=== PATIENT | male | born 1930 | race Caucasian/White ===

== ENCOUNTER 2016-10-08 10:30 | Outpatient (RCR) | payer MEDICARE, BC ==
[~2016-10-08 10:30] MED LIST: ACTOS 15MG TAB15 MG PO; APRESOLINE 25MG25 MG PO; ASPIRIN 81M81 MG/TA2 PO; ATROVENT INHALE14 GM IH; BACTRIM 400 MG-1 TAB PO; BETAPACE160 MG PO; CARDIZEM CD 18180 MG PO; CORDARONE200 MG/TAB PO; COUMADIN 22.5 MG/TAB; COUMADIN 5MG5 MG/TAB; COUMADIN 5MG5 MG/TAB PO; COZAAR 50MG50 MG/TAB PO; DARVOCET N PO; DOXYCYCLINE 10100 MG PO; ECOTRIN325 MG PO; FISH OIL1000 MG PO; FLONASE NASAL S16 GM NS; FORTAMET500 MG PO; GLUCOPHAGE XR500 M1 PO; GLUCOPHAGE1000 MG PO; GLUCOPHAGE500 MG/TAB PO; GLYBURIDE MICRON3 MG PO; HUMALOG PEN100 U/ML SC; HYZAAR 25 MG-101 TAB PO; INSULIN; LANTUS100 U/ML SC; LOPRESSOR 225 MG/TAB PO; MASON NATURAL1000 MG PO; MUCINEX 60600 MG/TA1 PO; MUCINEX1200 MG PO; NIACIN PO; NITROSTAT0.4 MG/TAB SL; NORVASC 10MG10 MG PO; NORVASC2.5 MG PO; NOVOLOG 100U100 U/M1 SQ; PACERONE200 MG PO; PHENERGAN W/CO120 M1 PO; PRAVACHOL10 MG PO; PREDNISONE20 MG PO; PROAIR HFA0.09 MG/AC IH; PROMETHAZINE V473 M2 PO; RT SPIRIVA18 MCG IH; RT SPIRIVA18 MCG INH; SINGULAIR 110 MG/TAB PO; TOUJEO300 U/ML SQ; TRICOR145 MG PO; TYLENOL 500MG500 MG PO; VENTOLIN0.09 MG IH; XANAX .25M0.25 MG/TA PO; ZITHROMAX 250M250 MG PO; ZITHROMAX500 M2 PO
[2016-10-15] MEDS ORDERED: MUCINEX 60600 MG/TA1 PO (13:34)
[2016-10-15] MEDS ORDERED: LASIX 20MG TABL20 MG PO (13:34)
[2016-10-15] MEDS ORDERED: COMBIRESP IH (13:39)
[2016-10-15] MEDS ORDERED: ALBUTEROL0.83 MG/ML IH (13:40)
[2016-10-15] MEDS ORDERED: COUMADIN 22.5 MG/TAB PO (15:14)
[2016-10-15] MEDS ORDERED: COUMADIN 5MG5 MG/TAB PO (15:14)
[2016-10-19] MEDS ORDERED: SENOKOT S 50 MG1 TAB PO (08:16)
[2016-10-19] MEDS ORDERED: MIRALAX PA17 GM/Dose PO (08:17)
[2016-10-19] MEDS ORDERED: NORCO 325 MG-51 TAB PO (08:17)
[2016-10-19] MEDS ORDERED: STOOL SOFTENER100 M2 PO (08:17)
== END 2016-11-02 12:22 | disposition home or self-care (01) ==
LOC: WSPT 10:30
DX: M54.5 Low back pain (principal); G89.29 Other chronic pain
CPT/HCPCS: G8979-GP; G8980-GP

== ENCOUNTER 2016-10-15 10:32 | Inpatient (IN) | payer MEDICARE, BC ==
[~2016-10-15] VITALS: Ht 170.2 cm; Wt 81.6 kg
[2016-10-15 11:17] LABS: BASO % 0.4 % (0.0-2.0); EOS # 0.2 (0.0-0.7); EOS % 2.6 % (0-4.0); GRAN # 5.4 (1.4-6.5); GRAN % 74.1 % (42.2-75.2); HEMATOCRIT 35.3 % (42.0-52.0); HEMOGLOBIN 12.1 g/dl (13.5-18.0); LYMPH # 1.1 (1.2-3.4); LYMPH % 15.2 % (20.0-51.0); MEAN CELL VOLUME 92 fl (80.0-100.0); MEAN CORPUSCULAR HEMOGLOBIN 31 pg (27.0-31.0); MEAN CORPUSCULAR HGB CONC 34 g/dl (33.0-37.0); MEAN PLATELET VOLUME 10.5 fl (7.4-10.4); MONO # 0.5 (0.1-0.6); MONO % 7.3 % (1.7-9.3); PLATELET COUNT 234 K/mm3 (130-400); RED BLOOD COUNT 3.86 M/mm3 (4.20-5.60); REDCELL DISTRIBUTION WIDTH-CV 12.2 % (11.5-14.5); WHITE BLOOD COUNT 7.3 K/mm3 (4.8-10.8)
[2016-10-15 11:26] LABS: ADJUSTED CALCIUM 9.4 mg/dL (8.4-10.2); ALBUMIN 3.8 gm/dL (3.5-5.0); BILIRUBIN,TOTAL 0.6 mg/dL (0.0-1.0); CALCIUM 9.2 mg/dL (8.4-10.2); CREATININE, serum 1.34 mg/dL (0.66-1.25); POTASSIUM 4.1 mmol/L (3.4-5.0); TOTAL PROTEIN 6.7 gm/dL (6.4-8.2)
[2016-10-15 13:12] LABS: PH 5 (5-8); SQUAMOUS EPITHELIAL None Seen /hpf; URINE APPEARANCE Clear; URINE BACTERIA None Seen /hpf; URINE BILIRUBIN Negative (NEGATIVE); URINE BLOOD Negative (NEGATIVE); URINE COLOR Yellow; URINE GLUCOSE Negative (NEGATIVE); URINE KETONE Negative (NEGATIVE); URINE RBC 0-2 /hpf; URINE UROBILINOGEN Negative (NEGATIVE); URINE WBC 0-2 /hpf
[2016-10-15] MEDS ORDERED: MUCINEX 60600 MG/TA1 PO (13:34)
[2016-10-15] MEDS ORDERED: LASIX 20MG TABL20 MG PO (13:34)
[2016-10-15] MEDS ORDERED: COMBIRESP IH (13:39)
[2016-10-15] MEDS ORDERED: ALBUTEROL0.83 MG/ML IH (13:40)
[2016-10-15] MEDS ORDERED: COUMADIN 22.5 MG/TAB PO (15:14)
[2016-10-15] MEDS ORDERED: COUMADIN 5MG5 MG/TAB PO (15:14)
[2016-10-15 17:25] VITALS: BP 138/60; PULSE 61; TEMP 98.3
[2016-10-15 18:12] LABS: INR 2.4 (0.8-3.0); PROTHROMBIN TIME 27.7 SECONDS (9.7-12.8)
[2016-10-15 20:41] VITALS: BP 143/56; PULSE 92; TEMP 98.4
[2016-10-16] VITALS (7 sets, daily range): BP systolic 130–158; BP diastolic 50–64; PULSE 67–78; TEMP 97.9–99.1
[2016-10-16 06:47] LABS: INR 2.2 (0.8-3.0); PROTHROMBIN TIME 25.1 SECONDS (9.7-12.8)
[2016-10-17 03:48] VITALS: BP 140/59; PULSE 68; TEMP 99.3
[2016-10-17 07:03] LABS: INR 1.5 (0.8-3.0); PROTHROMBIN TIME 16.7 SECONDS (9.7-12.8)
[2016-10-17 07:51] VITALS: BP 155/66; PULSE 77; TEMP 98.3
[2016-10-17 11:49] VITALS: BP 146/50; PULSE 78; TEMP 98.3
[2016-10-17 16:34] VITALS: BP 145/59; PULSE 77; TEMP 98.7
[2016-10-17 20:00] VITALS: BP 162/60; PULSE 17; TEMP 98.4
[2016-10-18] VITALS (7 sets, daily range): BP systolic 131–161; BP diastolic 50–64; PULSE 83–92; TEMP 97.7–98.8
[2016-10-18 07:23] LABS: INR 1.3 (0.8-3.0); PROTHROMBIN TIME 14.7 SECONDS (9.7-12.8)
[2016-10-19 03:28] VITALS: BP 148/61; PULSE 71; TEMP 98.5
[2016-10-19 07:36] VITALS: BP 146/61; PULSE 80; TEMP 98.3
[2016-10-19] MEDS ORDERED: SENOKOT S 50 MG1 TAB PO (08:16)
[2016-10-19] MEDS ORDERED: MIRALAX PA17 GM/Dose PO (08:17)
[2016-10-19] MEDS ORDERED: NORCO 325 MG-51 TAB PO (08:17)
[2016-10-19] MEDS ORDERED: STOOL SOFTENER100 M2 PO (08:17)
[2016-10-19 11:11] VITALS: BP 146/61; PULSE 80; TEMP 98.3
[2016-10-19 11:18] VITALS: BP 166/63; PULSE 83; TEMP 94; TEMP 97.5
== END 2016-10-19 12:37 | DRG 552 ==
LOC: COL.ER 10:32 → MEDICAL 14:49
PROVIDERS: Emergency Medicine; Internal Medicine
PROC: 3E0R33Z Introduction of Anti-inflammatory into Spinal Canal, Percutaneous Approach (ICD-10-PCS; principal; 2016-10-18)
PROC: 3E0R3CZ (ICD-10-PCS; 2016-10-18)
DX: M51.26 Other intervertebral disc displacement, lumbar region (principal); I48.0 Paroxysmal atrial fibrillation; J44.9 Chronic obstructive pulmonary disease, unspecified; E11.649 Type 2 diabetes mellitus with hypoglycemia without coma; E11.22 Type 2 diabetes mellitus with diabetic chronic kidney disease; N18.9 Chronic kidney disease, unspecified; I12.9 Hypertensive chronic kidney disease with stage 1 through stage 4 chronic kidney disease, or unspecified chronic kidney disease; K59.00 Constipation, unspecified; Z79.01 Long term (current) use of anticoagulants; Z86.718 Personal history of other venous thrombosis and embolism; Z79.4 Long term (current) use of insulin
CPT/HCPCS: 99222-AI; 99232-AI; 99239; J1815; J2765; J3010; J3301; J7030; J7040; Q9965

== ENCOUNTER 2016-11-02 13:27 | Inpatient (IN) | payer MEDICARE, BC ==
[2016-11-02] VITALS (274 sets, daily range): BP systolic 142–155; BP diastolic 70; PULSE 73–74; TEMP 98.6–98.9; O2SAT 88–100
[~2016-11-02] VITALS: Ht 170.2 cm; Wt 94.9 kg
[~2016-11-02 13:27] MED LIST changes: +ALBUTEROL0.83 MG/ML IH; +COMBIRESP IH; +COUMADIN 22.5 MG/TAB PO; +LASIX 20MG TABL20 MG PO; +MIRALAX PA17 GM/Dose PO; +NORCO 325 MG-51 TAB PO; +SENOKOT S 50 MG1 TAB PO; +STOOL SOFTENER100 M2 PO
[2016-11-02 16:15] LABS: BASO % 0.4 % (0.0-2.0); EOS # 0.1 (0.0-0.7); EOS % 0.6 % (0-4.0); GRAN # 6.5 (1.4-6.5); GRAN % 81.2 % (42.2-75.2); LYMPH # 0.7 (1.2-3.4); LYMPH % 8.7 % (20.0-51.0); MEAN CELL VOLUME 91 fl (80.0-100.0); MEAN CORPUSCULAR HGB CONC 33 g/dl (33.0-37.0); MEAN PLATELET VOLUME 11.1 fl (7.4-10.4); MONO # 0.7 (0.1-0.6); MONO % 8.7 % (1.7-9.3); PLATELET COUNT 275 K/mm3 (130-400); RED BLOOD COUNT 3.74 M/mm3 (4.20-5.60); REDCELL DISTRIBUTION WIDTH-CV 12.2 % (11.5-14.5)
[2016-11-02 16:16] LABS: HEMATOCRIT 34.1 % (42.0-52.0); HEMOGLOBIN 11.4 g/dl (13.5-18.0); MEAN CORPUSCULAR HEMOGLOBIN 30 pg (27.0-31.0)
[2016-11-02 16:20] LABS: ADJUSTED CALCIUM 9.5 mg/dL (8.4-10.2); ALBUMIN 3.4 gm/dL (3.5-5.0); BILIRUBIN,TOTAL 0.8 mg/dL (0.0-1.0); CREATININE, serum 1.41 mg/dL (0.66-1.25); POTASSIUM 4.6 mmol/L (3.4-5.0); TOTAL PROTEIN 6.6 gm/dL (6.4-8.2)
[2016-11-02 18:53] LABS: INR 1.6 (0.8-3.0); PROTHROMBIN TIME 18.4 SECONDS (9.7-12.8)
[2016-11-02 23:40] LABS: PH 5 (5-8); SQUAMOUS EPITHELIAL None Seen /hpf; URINE APPEARANCE Hazy; URINE BACTERIA None Seen /hpf; URINE BILIRUBIN Negative (NEGATIVE); URINE BLOOD Negative (NEGATIVE); URINE COLOR Yellow; URINE GLUCOSE Negative (NEGATIVE); URINE KETONE Negative (NEGATIVE); URINE RBC 0-2 /hpf; URINE UROBILINOGEN Negative (NEGATIVE)
[2016-11-03] VITALS (829 sets, daily range): BP systolic 133–163; BP diastolic 61–79; PULSE 73–93; TEMP 98–100.2; O2SAT 79–98
[2016-11-03 05:40] LABS: BASO % 0.3 % (0.0-2.0); EOS # 0.2 (0.0-0.7); EOS % 2.9 % (0-4.0); GRAN # 5.3 (1.4-6.5); GRAN % 72.2 % (42.2-75.2); LYMPH # 1.1 (1.2-3.4); LYMPH % 14.5 % (20.0-51.0); MEAN CELL VOLUME 91 fl (80.0-100.0); MEAN CORPUSCULAR HGB CONC 33 g/dl (33.0-37.0); MEAN PLATELET VOLUME 9.7 fl (7.4-10.4); MONO # 0.7 (0.1-0.6); MONO % 9.6 % (1.7-9.3); PLATELET COUNT 228 K/mm3 (130-400); RED BLOOD COUNT 3.39 M/mm3 (4.20-5.60); WHITE BLOOD COUNT 7.4 K/mm3 (4.8-10.8)
[2016-11-03 05:42] LABS: HEMATOCRIT 30.8 % (42.0-52.0); HEMOGLOBIN 10.3 g/dl (13.5-18.0); MEAN CORPUSCULAR HEMOGLOBIN 30 pg (27.0-31.0)
[2016-11-03 05:51] LABS: INR 1.8 (0.8-3.0); PROTHROMBIN TIME 20.7 SECONDS (9.7-12.8)
[2016-11-03 06:00] LABS: ADJUSTED CALCIUM 9.2 mg/dL (8.4-10.2); ALBUMIN 2.8 gm/dL (3.5-5.0); BILIRUBIN,TOTAL 0.7 mg/dL (0.0-1.0); CALCIUM 8.2 mg/dL (8.4-10.2); CREATININE, serum 1.17 mg/dL (0.66-1.25); POTASSIUM 4.1 mmol/L (3.4-5.0); TOTAL PROTEIN 5.7 gm/dL (6.4-8.2)
[2016-11-04] VITALS (162 sets, daily range): BP systolic 126–152; BP diastolic 50–68; PULSE 70–91; TEMP 97.7–101.4; O2SAT 86–98
[2016-11-04 05:13] LABS: ARTERIAL BLD GAS TCO2 CT 22.3; ARTERIAL BLOOD GAS BASE EXCESS -1.3 (-2-2); ARTERIAL BLOOD GAS HCO3 21.4 meq/L (22-26); ARTERIAL BLOOD GAS PHT 7.48 C (7.35-7.45); ARTERIAL BLOOD GAS PO2 52.4 mmHg (80-100); ARTERIAL BLOOD GAS PO2T 52.4 (80-100); ARTERIAL BLOOD GAS pH 7.48 (7.35-7.45); OXYHEMOGLOBIN 88.6 %
[2016-11-04 05:17] LABS: ALLEN TEST NO; ATS? YES
[2016-11-04 08:11] LABS: INR 2.5 (0.8-3.0)
[2016-11-04 08:15] LABS: BASO % 0.2 % (0.0-2.0); EOS # 0.1 (0.0-0.7); EOS % 0.6 % (0-4.0); GRAN # 8.1 (1.4-6.5); LYMPH # 0.9 (1.2-3.4); LYMPH % 8.7 % (20.0-51.0); MEAN CELL VOLUME 90 fl (80.0-100.0); MEAN CORPUSCULAR HGB CONC 34 g/dl (33.0-37.0); MEAN PLATELET VOLUME 10.8 fl (7.4-10.4); MONO # 0.8 (0.1-0.6); MONO % 8.2 % (1.7-9.3); PLATELET COUNT 259 K/mm3 (130-400); RED BLOOD COUNT 3.59 M/mm3 (4.20-5.60); REDCELL DISTRIBUTION WIDTH-CV 12.1 % (11.5-14.5); WHITE BLOOD COUNT 9.9 K/mm3 (4.8-10.8)
[2016-11-04 08:18] LABS: HEMATOCRIT 32.3 % (42.0-52.0); MEAN CORPUSCULAR HEMOGLOBIN 31 pg (27.0-31.0)
[2016-11-04 08:22] LABS: ADJUSTED CALCIUM 9.4 mg/dL (8.4-10.2); BILIRUBIN,TOTAL 1.2 mg/dL (0.0-1.0); CALCIUM 8.6 mg/dL (8.4-10.2); CREATININE, serum 1.2 mg/dL (0.66-1.25); POTASSIUM 3.8 mmol/L (3.4-5.0); TOTAL PROTEIN 6.2 gm/dL (6.4-8.2)
[2016-11-04 09:19] LABS: ARTERIAL BLD GAS O2 SATURATION 94.6 % (92-100); ARTERIAL BLD GAS TCO2 CT 24.6; ARTERIAL BLOOD GAS HCO3 23.6 meq/L (22-26); ARTERIAL BLOOD GAS PO2 68.5 mmHg (80-100); ARTERIAL BLOOD GAS PO2T 68.5 (80-100); ATS? YES; OXYHEMOGLOBIN 94.1 %
[2016-11-04 09:20] LABS: ALLEN TEST YES; ALLENS TEST RESULT PASS
[2016-11-04 21:47] LABS: ARTERIAL BLD GAS O2 SATURATION 89.8 % (92-100); ARTERIAL BLD GAS TCO2 CT 23.9; ARTERIAL BLOOD GAS BASE EXCESS 0.3 (-2-2); ARTERIAL BLOOD GAS HCO3 22.9 meq/L (22-26); ARTERIAL BLOOD GAS PO2 53.3 mmHg (80-100); ARTERIAL BLOOD GAS pH 7.49 (7.35-7.45)
[2016-11-04 21:48] LABS: ALLEN TEST YES; ALLENS TEST RESULT PASS; ATS? YES
[2016-11-05] VITALS (630 sets, daily range): BP systolic 125–148; BP diastolic 60–73; PULSE 67–84; TEMP 89.8–99.3; O2SAT 81–100
[2016-11-05 06:44] LABS: ADJUSTED CALCIUM 9.4 mg/dL (8.4-10.2); ALBUMIN 2.7 gm/dL (3.5-5.0); BASO % 0.2 % (0.0-2.0); BILIRUBIN,TOTAL 1.2 mg/dL (0.0-1.0); CALCIUM 8.4 mg/dL (8.4-10.2); CREATININE, serum 1.22 mg/dL (0.66-1.25); EOS # 0.2 (0.0-0.7); EOS % 1.7 % (0-4.0); GRAN # 8.7 (1.4-6.5); GRAN % 84.9 % (42.2-75.2); LYMPH # 0.7 (1.2-3.4); LYMPH % 7.1 % (20.0-51.0); MEAN CELL VOLUME 90 fl (80.0-100.0); MEAN CORPUSCULAR HGB CONC 35 g/dl (33.0-37.0); MEAN PLATELET VOLUME 11.2 fl (7.4-10.4); MONO # 0.6 (0.1-0.6); MONO % 5.5 % (1.7-9.3); PLATELET COUNT 226 K/mm3 (130-400); POTASSIUM 3.4 mmol/L (3.4-5.0); RED BLOOD COUNT 3.22 M/mm3 (4.20-5.60); REDCELL DISTRIBUTION WIDTH-CV 11.9 % (11.5-14.5); TOTAL PROTEIN 5.6 gm/dL (6.4-8.2); WHITE BLOOD COUNT 10.2 K/mm3 (4.8-10.8)
[2016-11-05 06:52] LABS: MEAN CORPUSCULAR HEMOGLOBIN 31 pg (27.0-31.0)
[2016-11-05 06:55] LABS: TROPONIN-I 0.03 ng/mL (0.000-0.034)
[2016-11-05 07:06] LABS: INR 2.6 (0.8-3.0); PROTHROMBIN TIME 29.7 SECONDS (9.7-12.8)
[2016-11-05 10:32] LABS: ERYTHROCYTE SEDIMENTATION RATE 102 mm/hr (0-30)
[2016-11-05 11:16] LABS: MAGNESIUM 1.7 mg/dL (1.6-2.3)
[2016-11-05 14:24] LABS: INFLUENZA B NEGATIVE
[2016-11-06] VITALS (531 sets, daily range): BP systolic 113–132; BP diastolic 56–96; PULSE 67–86; TEMP 97.6–99.9; O2SAT 78–100
[2016-11-06 06:05] LABS: BASO % 0.2 % (0.0-2.0); EOS # 0.3 (0.0-0.7); EOS % 2.6 % (0-4.0); GRAN # 8.6 (1.4-6.5); GRAN % 81.4 % (42.2-75.2); LYMPH # 0.9 (1.2-3.4); LYMPH % 8.1 % (20.0-51.0); MEAN CELL VOLUME 90 fl (80.0-100.0); MEAN CORPUSCULAR HGB CONC 34 g/dl (33.0-37.0); MEAN PLATELET VOLUME 11.2 fl (7.4-10.4); MONO # 0.8 (0.1-0.6); MONO % 7.1 % (1.7-9.3); PLATELET COUNT 239 K/mm3 (130-400); RED BLOOD COUNT 3.25 M/mm3 (4.20-5.60); REDCELL DISTRIBUTION WIDTH-CV 12.1 % (11.5-14.5); WHITE BLOOD COUNT 10.6 K/mm3 (4.8-10.8)
[2016-11-06 06:11] LABS: HEMATOCRIT 29.2 % (42.0-52.0); HEMOGLOBIN 9.9 g/dl (13.5-18.0); MEAN CORPUSCULAR HEMOGLOBIN 30 pg (27.0-31.0)
[2016-11-06 06:22] LABS: CALCIUM 8.3 mg/dL (8.4-10.2); CREATININE, serum 1.13 mg/dL (0.66-1.25); MAGNESIUM 1.9 mg/dL (1.6-2.3); PHOSPHOROUS 2.8 mg/dL (2.5-4.5)
[2016-11-07] VITALS (835 sets, daily range): BP systolic 123–153; BP diastolic 49–71; PULSE 75–89; TEMP 97.4–98.4; O2SAT 75–100
[2016-11-07 05:53] LABS: MEAN CELL VOLUME 91 fl (80.0-100.0); MEAN CORPUSCULAR HGB CONC 34 g/dl (33.0-37.0); MEAN PLATELET VOLUME 11.3 fl (7.4-10.4); PLATELET COUNT 239 K/mm3 (130-400); RED BLOOD COUNT 3.05 M/mm3 (4.20-5.60); REDCELL DISTRIBUTION WIDTH-CV 12.1 % (11.5-14.5)
[2016-11-07 05:59] LABS: HEMATOCRIT 27.6 % (42.0-52.0); HEMOGLOBIN 9.4 g/dl (13.5-18.0); MEAN CORPUSCULAR HEMOGLOBIN 31 pg (27.0-31.0)
[2016-11-07 06:00] LABS: ADD PATHOLOGY DIFF REVIEW NO
[2016-11-07 06:10] LABS: CALCIUM 8.5 mg/dL (8.4-10.2); CREATININE, serum 1.27 mg/dL (0.66-1.25); POTASSIUM 4.1 mmol/L (3.4-5.0)
[2016-11-07 06:15] LABS: BAND 7 % (0-10); NEUTROPHILS 92 % (42.0-75.2); PLATELET ESTIMATE NORMAL (NORMAL); TOTAL CELLS COUNTED 100
[2016-11-07 12:11] LABS: RETIC % 0.9 % (0.5-3.52)
[2016-11-07 12:25] LABS: TOTAL IRON BINDING CAPACITY 159 ug/dL (261-462)
[2016-11-07 13:35] LABS: FERRITIN 957 ng/mL (18-464)
[2016-11-08 00:02] VITALS: BP 139/52; PULSE 80; TEMP 97.4
[2016-11-08 04:49] VITALS: BP 131/50; PULSE 78; TEMP 97.9
[2016-11-08 10:39] VITALS: BP 130/44; PULSE 70; TEMP 97.7
[2016-11-08 12:38] LABS: PROTHROMBIN TIME 38.6 SECONDS (9.7-12.8)
[2016-11-08 12:41] LABS: INR 3.4 (0.8-3.0)
[2016-11-08 16:25] VITALS: BP 133/51; PULSE 80; TEMP 97.5
[2016-11-08 19:44] VITALS: BP 141/49; PULSE 89; TEMP 98
[2016-11-08 23:51] VITALS: BP 122/49; PULSE 83; TEMP 98
[2016-11-09 03:59] VITALS: BP 127/53; PULSE 81; TEMP 97.9
[2016-11-09 07:04] VITALS: BP 145/58; PULSE 79; TEMP 97.4
[2016-11-09 07:50] LABS: PROTHROMBIN TIME 43.7 SECONDS (9.7-12.8)
[2016-11-09 07:54] LABS: INR 3.8 (0.8-3.0)
[2016-11-09 12:08] VITALS: BP 141/56; PULSE 76; TEMP 97.3
[2016-11-09 16:56] VITALS: BP 170/65; PULSE 84; TEMP 97.2
[2016-11-09 19:35] VITALS: BP 141/49; PULSE 86; TEMP 97.5
[2016-11-09 23:32] VITALS: BP 138/54; PULSE 85; TEMP 97.9
[2016-11-10 03:31] VITALS: BP 140/57; PULSE 79; TEMP 97.6
[2016-11-10 07:16] LABS: PROTHROMBIN TIME 39.5 SECONDS (9.7-12.8)
[2016-11-10 07:37] LABS: C-REACTIVE PROTEIN 4.5 mg/dL (0.0-0.9); POTASSIUM 4.4 mmol/L (3.4-5.0)
[2016-11-10 07:44] LABS: INR 3.4 (0.8-3.0)
[2016-11-10 08:14] VITALS: BP 134/49; PULSE 78; TEMP 98.9
[2016-11-10 12:04] VITALS: BP 129/56; PULSE 82
[2016-11-10 15:25] VITALS: BP 139/53; PULSE 80; TEMP 98.3
[2016-11-10 19:23] VITALS: BP 147/68; PULSE 92; TEMP 97.2
[2016-11-10 23:52] VITALS: BP 129/50; PULSE 82; TEMP 97.5
[2016-11-11 03:43] VITALS: BP 132/43; PULSE 74; TEMP 98
[2016-11-11 05:26] LABS: ARTERIAL BLOOD GAS pH 7.52 (7.35-7.45)
[2016-11-11 05:27] LABS: ARTERIAL BLD GAS O2 SATURATION 95.4 % (92-100); ARTERIAL BLOOD GAS BASE EXCESS 6.9 (-2-2); ARTERIAL BLOOD GAS HCO3 30.3 meq/L (22-26); ARTERIAL BLOOD GAS PO2 75.1 mmHg (80-100)
[2016-11-11 05:28] LABS: ALLEN TEST YES; ALLENS TEST RESULT PASS; ATS? YES
[2016-11-11 08:52] LABS: ADD PATHOLOGY DIFF REVIEW NO
[2016-11-11 09:00] VITALS: BP 139/47; PULSE 81; TEMP 97.8
[2016-11-11 09:05] LABS: MEAN CELL VOLUME 91 fl (80.0-100.0); MEAN CORPUSCULAR HGB CONC 33 g/dl (33.0-37.0); MEAN PLATELET VOLUME 10.7 fl (7.4-10.4); PLATELET COUNT 290 K/mm3 (130-400); RED BLOOD COUNT 3.45 M/mm3 (4.20-5.60); REDCELL DISTRIBUTION WIDTH-CV 12.4 % (11.5-14.5); WHITE BLOOD COUNT 12.4 K/mm3 (4.8-10.8)
[2016-11-11 09:20] LABS: HEMATOCRIT 31.4 % (42.0-52.0); HEMOGLOBIN 10.4 g/dl (13.5-18.0); MEAN CORPUSCULAR HEMOGLOBIN 30 pg (27.0-31.0)
[2016-11-11 09:24] LABS: INR 2.6 (0.8-3.0)
[2016-11-11 09:39] LABS: ADJUSTED CALCIUM 9.9 mg/dL (8.4-10.2); ALBUMIN 2.8 gm/dL (3.5-5.0); BILIRUBIN,TOTAL 0.8 mg/dL (0.0-1.0); CALCIUM 8.9 mg/dL (8.4-10.2); CREATININE, serum 1.25 mg/dL (0.66-1.25); MAGNESIUM 2.3 mg/dL (1.6-2.3); POTASSIUM 4.1 mmol/L (3.4-5.0); TOTAL PROTEIN 5.5 gm/dL (6.4-8.2)
[2016-11-11 10:45] VITALS: BP 144/75; PULSE 80; TEMP 97.9
[2016-11-11 10:46] LABS: ERYTHROCYTE SEDIMENTATION RATE 25 mm/hr (0-30)
[2016-11-11 10:51] LABS: BAND 1 % (0-10); NEUTROPHILS 95 % (42.0-75.2); TOTAL CELLS COUNTED 100
[2016-11-11 10:52] LABS: HYPOCHROMIA 1+
[2016-11-11 17:30] VITALS: BP 148/57; PULSE 82; TEMP 97.6
[2016-11-11 19:14] VITALS: BP 142/51; PULSE 84; TEMP 97.9
[2016-11-11 21:15] LABS: ANA SCREEN with REFLEX Negative (Negative)
[2016-11-12] VITALS (7 sets, daily range): BP systolic 114–165; BP diastolic 47–82; PULSE 72–83; TEMP 97.8–98.4
[2016-11-12 11:44] LABS: PROCALCITONIN 0.14 ng/mL (<=0.15)
[2016-11-12 12:22] LABS: ANGIOTENSIN CONVERTING ENZYME 23 U/L (8 - 53)
[2016-11-13 00:54] VITALS: BP 131/41; PULSE 72; TEMP 98.3
[2016-11-13 03:56] VITALS: BP 167/58; PULSE 82; TEMP 97.6
[2016-11-13 07:42] LABS: INR 2.1 (0.8-3.0); PROTHROMBIN TIME 24.2 SECONDS (9.7-12.8)
[2016-11-13 08:30] VITALS: BP 131/51; PULSE 61; TEMP 97.9
[2016-11-13 11:17] VITALS: BP 128/45; PULSE 69; TEMP 97.5
[2016-11-13 15:35] VITALS: BP 136/55; PULSE 72; TEMP 97.5
[2016-11-13 20:45] VITALS: BP 155/60; PULSE 76; TEMP 97.5
[2016-11-14] VITALS (7 sets, daily range): BP systolic 123–139; BP diastolic 32–73; PULSE 71–83; TEMP 96.8–98.7
[2016-11-14 09:59] LABS: BASO % 0.1 % (0.0-2.0); EOS # 0.1 (0.0-0.7); EOS % 0.4 % (0-4.0); GRAN # 10.9 (1.4-6.5); GRAN % 73.2 % (42.2-75.2); LYMPH # 2.5 (1.2-3.4); MEAN CELL VOLUME 92 fl (80.0-100.0); MEAN CORPUSCULAR HGB CONC 33 g/dl (33.0-37.0); MEAN PLATELET VOLUME 10.8 fl (7.4-10.4); MONO # 1.2 (0.1-0.6); MONO % 7.9 % (1.7-9.3); PLATELET COUNT 279 K/mm3 (130-400); RED BLOOD COUNT 3.57 M/mm3 (4.20-5.60); REDCELL DISTRIBUTION WIDTH-CV 12.5 % (11.5-14.5); WHITE BLOOD COUNT 14.9 K/mm3 (4.8-10.8)
[2016-11-14 10:11] LABS: HEMATOCRIT 32.9 % (42.0-52.0); HEMOGLOBIN 10.8 g/dl (13.5-18.0); MEAN CORPUSCULAR HEMOGLOBIN 30 pg (27.0-31.0)
[2016-11-14 10:12] LABS: C-REACTIVE PROTEIN 1.5 mg/dL (0.0-0.9)
[2016-11-14 10:19] LABS: INR 1.8 (0.8-3.0); PROTHROMBIN TIME 20.6 SECONDS (9.7-12.8)
[2016-11-14 10:40] LABS: POTASSIUM 4.5 mmol/L (3.4-5.0)
[2016-11-14 11:04] LABS: ERYTHROCYTE SEDIMENTATION RATE 15 mm/hr (0-30)
[2016-11-15 03:23] VITALS: BP 141/54; PULSE 77; TEMP 97.6
[2016-11-15 08:02] VITALS: BP 133/58; PULSE 69; TEMP 97.8
[2016-11-15 09:37] LABS: BASO % 0.1 % (0.0-2.0); EOS # 0.1 (0.0-0.7); EOS % 0.3 % (0-4.0); GRAN # 11.6 (1.4-6.5); GRAN % 79.2 % (42.2-75.2); LYMPH # 1.7 (1.2-3.4); LYMPH % 11.9 % (20.0-51.0); MEAN CELL VOLUME 93 fl (80.0-100.0); MEAN CORPUSCULAR HGB CONC 32 g/dl (33.0-37.0); MEAN PLATELET VOLUME 10.9 fl (7.4-10.4); MONO # 1.1 (0.1-0.6); MONO % 7.4 % (1.7-9.3); PLATELET COUNT 238 K/mm3 (130-400); RED BLOOD COUNT 3.23 M/mm3 (4.20-5.60); REDCELL DISTRIBUTION WIDTH-CV 12.5 % (11.5-14.5); WHITE BLOOD COUNT 14.7 K/mm3 (4.8-10.8)
[2016-11-15 09:39] LABS: HEMATOCRIT 29.9 % (42.0-52.0); HEMOGLOBIN 9.7 g/dl (13.5-18.0); MEAN CORPUSCULAR HEMOGLOBIN 30 pg (27.0-31.0)
[2016-11-15 09:48] LABS: CALCIUM 8.8 mg/dL (8.4-10.2); CREATININE, serum 1.28 mg/dL (0.66-1.25); MAGNESIUM 2.4 mg/dL (1.6-2.3); PHOSPHOROUS 3.5 mg/dL (2.5-4.5); POTASSIUM 3.9 mmol/L (3.4-5.0)
[2016-11-15 11:34] VITALS: BP 142/51; PULSE 72; TEMP 97.4
[2016-11-15 15:24] VITALS: BP 149/49; PULSE 81; TEMP 98.7
[2016-11-15 19:27] VITALS: BP 151/58; PULSE 83; TEMP 98.1
[2016-11-16 00:12] VITALS: BP 134/51; PULSE 78; TEMP 97.6
[2016-11-16 03:43] VITALS: BP 146/53; PULSE 72; TEMP 97.5
[2016-11-16 07:56] LABS: INR 1.7 (0.8-3.0); PROTHROMBIN TIME 19.4 SECONDS (9.7-12.8)
[2016-11-16 08:08] VITALS: BP 143/61; PULSE 73; TEMP 97.4
[2016-11-16] MEDS ORDERED: DOXYCYCLINE 10100 MG PO (11:01)
[2016-11-16] MEDS ORDERED: COUMADIN 3MG3 MG/TAB PO (11:03)
[2016-11-16] MEDS ORDERED: COZAAR 50MG50 MG/TAB PO (11:04)
[2016-11-16] MEDS ORDERED: LASIX 20MG TABL20 MG PO (11:07)
[2016-11-16] MEDS ORDERED: TOUJEO300 U/ML SQ (11:07)
[2016-11-16] MEDS ORDERED: NOVOLOG FLEX100 U/ML SQ (11:07)
[2016-11-16] MEDS ORDERED: PREDNISONE10 MG PO (11:12)
[2016-11-16] MEDS ORDERED: ULTRAM 50MG TAB50 MG PO (11:13)
[2016-11-16] MEDS ORDERED: XANAX .25M0.25 MG/TA PO (11:13)
[2016-11-16 11:28] LABS: HEMOGLOBIN A2 3.3 % (0.0-3.5); HEMOGLOBIN F <2.0 % (0.0-2.0)
[2016-11-16 11:55] VITALS: BP 143/61; PULSE 73; TEMP 97.4
[2016-11-16 12:12] VITALS: BP 167/72; PULSE 84; TEMP 97.7
== END 2016-11-16 15:10 | DRG 871 ==
LOC: COL.ER 13:27 → MEDICAL 17:27 → ICU 17:27 → IMCU 17:27 → MEDICAL 11-03 17:04 → ICU 11-04 18:22 → MEDICAL 11-07 19:51
PROVIDERS: Emergency Medicine; Family Medicine; Internal Medicine; Internal Medicine Pulmonary Disease; Nurse Practitioner Family
PROC: 0B958ZX Drainage of Right Middle Lobe Bronchus, Via Natural or Artificial Opening Endoscopic, Diagnostic (ICD-10-PCS; 2016-11-06)
PROC: 0B968ZX Drainage of Right Lower Lobe Bronchus, Via Natural or Artificial Opening Endoscopic, Diagnostic (ICD-10-PCS; 2016-11-06)
PROC: 0B988ZX Drainage of Left Upper Lobe Bronchus, Via Natural or Artificial Opening Endoscopic, Diagnostic (ICD-10-PCS; 2016-11-06)
PROC: 0B9B8ZX Drainage of Left Lower Lobe Bronchus, Via Natural or Artificial Opening Endoscopic, Diagnostic (ICD-10-PCS; 2016-11-06)
PROC: 0B948ZX Drainage of Right Upper Lobe Bronchus, Via Natural or Artificial Opening Endoscopic, Diagnostic (ICD-10-PCS; principal; 2016-11-06 09:30)
DX: A41.9 Sepsis, unspecified organism (principal); J18.9 Pneumonia, unspecified organism; J96.01 Acute respiratory failure with hypoxia; E44.1 Mild protein-calorie malnutrition; T82.868A Thrombosis due to vascular prosthetic devices, implants and grafts, initial encounter; J44.1 Chronic obstructive pulmonary disease with (acute) exacerbation; Z66 Do not resuscitate; I48.0 Paroxysmal atrial fibrillation; I12.9 Hypertensive chronic kidney disease with stage 1 through stage 4 chronic kidney disease, or unspecified chronic kidney disease; E11.649 Type 2 diabetes mellitus with hypoglycemia without coma; E11.22 Type 2 diabetes mellitus with diabetic chronic kidney disease; N18.9 Chronic kidney disease, unspecified; D64.9 Anemia, unspecified
CPT/HCPCS: 99223-AI; 99232-AI; 99233-AI; 99239; A9284; C1751; J0456; J0692; J0696; J1644; J1815; J1940; J2185; J2405; J2704; J2916; J2920; J3010; J3370; J7030; J7040; J7050; J7120; J7512; P9047

== ENCOUNTER → 2016-12-07 | Outpatient (CLI) | payer MEDICARE, BC ==
[~2016-12-07] VITALS: Ht 170.2 cm; Wt 85.3 kg
[~2016-12-07] MED LIST changes: +COUMADIN 3MG3 MG/TAB PO; +DULCOLAX S10 MG/SUPP RC; +FENTANYL 25 MCG TD; +NOVOLOG FLEX100 U/ML SQ; +PERCOCET 325 MG1 TA2 PO; +PREDNISONE10 MG PO; +TRESIBA FL100 UNIT/1 SQ; +ULTRAM 50MG TAB50 MG PO; +ZOFRAN ODT4 MG PO
[2016-12-07 10:11] VITALS: BP 156/78; PULSE 84
[2016-12-07 10:33] LABS: INR 1.2 (0.8-3.0); PROTHROMBIN TIME 12.9 SECONDS (9.7-12.8)
[2016-12-07 11:45] VITALS: BP 157/76; PULSE 79
== END ==
LOC: COL.RAD 09:38
PROVIDERS: Internal Medicine
DX: M54.5 Low back pain (principal); G89.29 Other chronic pain; I48.91 Unspecified atrial fibrillation; J44.9 Chronic obstructive pulmonary disease, unspecified; I25.10 Atherosclerotic heart disease of native coronary artery without angina pectoris; E11.9 Type 2 diabetes mellitus without complications; E78.5 Hyperlipidemia, unspecified; M19.90 Unspecified osteoarthritis, unspecified site; I11.0 Hypertensive heart disease with heart failure; I50.9 Heart failure, unspecified; Z79.899 Other long term (current) drug therapy; Z79.84 Long term (current) use of oral hypoglycemic drugs; Z79.01 Long term (current) use of anticoagulants
CPT/HCPCS: J3301

== ENCOUNTER → 2016-12-17 | Outpatient (CLI) | payer MEDICARE, BC | LOC: COL.RAD 11:35 | DX: M54.42 Lumbago with sciatica, left side (principal); M54.41 Lumbago with sciatica, right side; G89.29 Other chronic pain ==

== ENCOUNTER 2017-02-16 09:11 | Emergency (ER) | payer MEDICARE, BC ==
[~2017-02-16] VITALS: Ht 167.6 cm; Wt 78.6 kg
[~2017-02-16 09:11] MED LIST changes: -DULCOLAX S10 MG/SUPP RC; -FENTANYL 25 MCG TD; -PERCOCET 325 MG1 TA2 PO; -TRESIBA FL100 UNIT/1 SQ; -ZOFRAN ODT4 MG PO
[2017-02-16 09:16] VITALS: TEMP 97.8
[2017-02-16] MEDS ORDERED: PERCOCET 325 MG1 TA2 PO (10:52)
[2017-02-16] MEDS ORDERED: ULTRAM 50MG TAB50 MG PO (10:52)
[2017-02-16 11:02] VITALS: BP 163/76; PULSE 66
== END 2017-02-16 11:28 | disposition home or self-care (01) ==
LOC: COL.ER 09:11
DX: M54.5 Low back pain (principal); G89.29 Other chronic pain; M25.552 Pain in left hip; E11.22 Type 2 diabetes mellitus with diabetic chronic kidney disease; I12.9 Hypertensive chronic kidney disease with stage 1 through stage 4 chronic kidney disease, or unspecified chronic kidney disease; N18.9 Chronic kidney disease, unspecified; J44.9 Chronic obstructive pulmonary disease, unspecified; Z86.718 Personal history of other venous thrombosis and embolism; Z79.01 Long term (current) use of anticoagulants; Z79.4 Long term (current) use of insulin
CPT/HCPCS: J1170; J1885

== ENCOUNTER 2017-02-22 08:34 | Emergency (ER) | payer MEDICARE, BC ==
[~2017-02-22] VITALS: Ht 170.2 cm; Wt 77.3 kg
[~2017-02-22 08:34] MED LIST changes: +PERCOCET 325 MG1 TA2 PO
[2017-02-22 08:37] VITALS: TEMP 98.1
[2017-02-22] MEDS ORDERED: TRESIBA FL100 UNIT/1 SQ (08:55)
[2017-02-22] MEDS ORDERED: COUMADIN 22.5 MG/TAB PO (09:13)
[2017-02-22] MEDS ORDERED: COUMADIN 5MG5 MG/TAB PO (09:13)
[2017-02-22] MEDS ORDERED: ZOFRAN ODT4 MG PO (09:17)
[2017-02-22] MEDS ORDERED: FENTANYL 25 MCG TD (09:37)
[2017-02-22] MEDS ORDERED: ULTRAM 50MG TAB50 MG PO (09:37)
[2017-02-22] MEDS ORDERED: NORCO 325 MG-51 TAB PO (09:37)
[2017-02-22 12:30] VITALS: BP 162/87; PULSE 78
== END 2017-02-22 12:32 | disposition home or self-care (01) ==
LOC: COL.ER 08:34
DX: M54.5 Low back pain (principal); G89.29 Other chronic pain; I12.9 Hypertensive chronic kidney disease with stage 1 through stage 4 chronic kidney disease, or unspecified chronic kidney disease; E11.22 Type 2 diabetes mellitus with diabetic chronic kidney disease; N18.9 Chronic kidney disease, unspecified; Z79.4 Long term (current) use of insulin; J44.9 Chronic obstructive pulmonary disease, unspecified; Z86.718 Personal history of other venous thrombosis and embolism; Z79.01 Long term (current) use of anticoagulants
CPT/HCPCS: J1170; J1885; J2405

== ENCOUNTER 2017-02-23 02:27 | Inpatient (IN) | payer MEDICARE, BC ==
[~2017-02-23] VITALS: Ht 170.2 cm; Wt 76.7 kg
[~2017-02-23 02:27] MED LIST changes: +FENTANYL 25 MCG TD; +TRESIBA FL100 UNIT/1 SQ; +ZOFRAN ODT4 MG PO
[2017-02-23 03:18] LABS: BASO % 0.3 % (0.0-2.0); EOS # 0.2 (0.0-0.7); EOS % 1.4 % (0-4.0); GRAN # 9.9 (1.4-6.5); GRAN % 79.6 % (42.2-75.2); HEMATOCRIT 34.3 % (42.0-52.0); HEMOGLOBIN 11.2 g/dl (13.5-18.0); LYMPH # 1.3 (1.2-3.4); LYMPH % 10.4 % (20.0-51.0); MEAN CELL VOLUME 93 fl (80.0-100.0); MEAN CORPUSCULAR HEMOGLOBIN 30 pg (27.0-31.0); MEAN CORPUSCULAR HGB CONC 33 g/dl (33.0-37.0); MEAN PLATELET VOLUME 10.1 fl (7.4-10.4); MONO % 7.7 % (1.7-9.3); PLATELET COUNT 338 K/mm3 (130-400); RED BLOOD COUNT 3.68 M/mm3 (4.20-5.60); REDCELL DISTRIBUTION WIDTH-CV 14.1 % (11.5-14.5); WHITE BLOOD COUNT 12.5 K/mm3 (4.8-10.8)
[2017-02-23 03:19] LABS: INR 4.7 (0.8-3.0)
[2017-02-23 03:21] LABS: PROTHROMBIN TIME 54.8 SECONDS (9.7-12.8)
[2017-02-23 03:27] LABS: ADJUSTED CALCIUM 9.4 mg/dL (8.4-10.2); ALBUMIN 3.3 gm/dL (3.5-5.0); BILIRUBIN,TOTAL 0.8 mg/dL (0.0-1.0); CALCIUM 8.8 mg/dL (8.4-10.2); CREATININE, serum 1.55 mg/dL (0.66-1.25); POTASSIUM 4.4 mmol/L (3.4-5.0)
[2017-02-23 03:36] LABS: TROPONIN-I 0.018 ng/mL (0.000-0.034)
[2017-02-23 04:04] LABS: C-REACTIVE PROTEIN 20.2 mg/dL (0.0-0.9)
[2017-02-23 04:36] VITALS: BP 159/57; PULSE 85; TEMP 97.3
[2017-02-23 04:41] LABS: PH 5 (5-8); SQUAMOUS EPITHELIAL None Seen /hpf; URINE APPEARANCE Clear; URINE BACTERIA Rare /hpf; URINE BILIRUBIN Negative (NEGATIVE); URINE BLOOD Negative (NEGATIVE); URINE COLOR Amber; URINE GLUCOSE 2+ (NEGATIVE); URINE KETONE Trace (NEGATIVE); URINE RBC 0-2 /hpf; URINE UROBILINOGEN Negative (NEGATIVE); URINE WBC 0-2 /hpf
[2017-02-23 07:50] VITALS: BP 141/51; PULSE 82; TEMP 98.2
[2017-02-23 12:18] VITALS: BP 128/50; PULSE 89; TEMP 97.8
[2017-02-23 15:51] VITALS: BP 151/57; PULSE 90; TEMP 97.7
[2017-02-23 19:46] VITALS: BP 147/54; PULSE 93; TEMP 98.6
[2017-02-23 23:57] VITALS: BP 146/53; PULSE 93; TEMP 98.9
[2017-02-24] VITALS (8 sets, daily range): BP systolic 117–188; BP diastolic 48–88; PULSE 59–93; TEMP 98.1–98.8
[2017-02-24 07:16] LABS: INR 1.4 (0.8-3.0); PROTHROMBIN TIME 15.2 SECONDS (9.7-12.8)
[2017-02-24 07:20] LABS: BASO % 0.3 % (0.0-2.0); EOS # 0.3 (0.0-0.7); EOS % 3.5 % (0-4.0); GRAN # 5.2 (1.4-6.5); GRAN % 66.3 % (42.2-75.2); LYMPH # 1.6 (1.2-3.4); LYMPH % 20.7 % (20.0-51.0); MEAN CELL VOLUME 91 fl (80.0-100.0); MEAN CORPUSCULAR HGB CONC 34 g/dl (33.0-37.0); MEAN PLATELET VOLUME 10.4 fl (7.4-10.4); MONO # 0.7 (0.1-0.6); MONO % 8.6 % (1.7-9.3); PLATELET COUNT 295 K/mm3 (130-400); RED BLOOD COUNT 3.26 M/mm3 (4.20-5.60); REDCELL DISTRIBUTION WIDTH-CV 13.8 % (11.5-14.5); WHITE BLOOD COUNT 7.8 K/mm3 (4.8-10.8)
[2017-02-24 07:21] LABS: CALCIUM 8.3 mg/dL (8.4-10.2); CREATININE, serum 1.31 mg/dL (0.66-1.25); POTASSIUM 4.1 mmol/L (3.4-5.0)
[2017-02-24 07:25] LABS: HEMATOCRIT 29.7 % (42.0-52.0); MEAN CORPUSCULAR HEMOGLOBIN 31 pg (27.0-31.0)
[2017-02-25] VITALS (7 sets, daily range): BP systolic 129–163; BP diastolic 55–71; PULSE 83–92; TEMP 97.6–98.8
[2017-02-25 07:16] LABS: INR 1.4 (0.8-3.0)
[2017-02-25 07:40] LABS: CALCIUM 8.1 mg/dL (8.4-10.2); CREATININE, serum 1.1 mg/dL (0.66-1.25); POTASSIUM 4.5 mmol/L (3.4-5.0)
[2017-02-26 04:59] VITALS: BP 136/78; PULSE 86; TEMP 98.4
[2017-02-26 07:38] VITALS: BP 166/69; PULSE 93; TEMP 98.3
[2017-02-26] MEDS ORDERED: DULCOLAX S10 MG/SUPP RC (07:54)
[2017-02-26] MEDS ORDERED: FENTANYL 25 MCG TD (07:55)
[2017-02-26] MEDS ORDERED: NORCO 325 MG-51 TAB PO (07:55)
[2017-02-26 08:04] LABS: INR 1.3 (0.8-3.0); PROTHROMBIN TIME 14.4 SECONDS (9.7-12.8)
[2017-02-26 08:06] LABS: CALCIUM 8.4 mg/dL (8.4-10.2); CREATININE, serum 1.09 mg/dL (0.66-1.25); POTASSIUM 4.4 mmol/L (3.4-5.0)
[2017-02-26 12:39] VITALS: BP 138/52; PULSE 93; TEMP 98.5
[2017-02-26] MEDS ORDERED: COUMADIN 5MG5 MG/TAB PO (12:53)
[2017-02-26 13:35] VITALS: BP 138/52; PULSE 93; TEMP 98.5
== END 2017-02-26 14:18 | DRG 516 ==
LOC: COL.ER 02:27 → MEDICAL 03:19
PROVIDERS: Emergency Medicine; Nurse Practitioner Family; Physician Assistant
PROC: 0QU03JZ Supplement Lumbar Vertebra with Synthetic Substitute, Percutaneous Approach (ICD-10-PCS; principal; 2017-02-24)
DX: M80.88XA Other osteoporosis with current pathological fracture, vertebra(e), initial encounter for fracture (principal); N17.9 Acute kidney failure, unspecified; K56.7 Ileus, unspecified; E87.1 Hypo-osmolality and hyponatremia; Z66 Do not resuscitate; I48.91 Unspecified atrial fibrillation; J44.9 Chronic obstructive pulmonary disease, unspecified; Z79.01 Long term (current) use of anticoagulants; E11.42 Type 2 diabetes mellitus with diabetic polyneuropathy; I12.9 Hypertensive chronic kidney disease with stage 1 through stage 4 chronic kidney disease, or unspecified chronic kidney disease; E11.22 Type 2 diabetes mellitus with diabetic chronic kidney disease; N18.9 Chronic kidney disease, unspecified
CPT/HCPCS: 99222-AI; 99232-AI; 99239; J1170; J1650; J1815; J1885; J2212; J2250; J2405; J3010; J3430; J7030; J7120

== ENCOUNTER 2018-05-08 14:34 | Emergency (ER) | payer MEDICARE, BC ==
[~2018-05-08] VITALS: Ht 170.2 cm; Wt 76.4 kg
[~2018-05-08 14:34] MED LIST changes: +DULCOLAX S10 MG/SUPP RC
[2018-05-08 14:38] VITALS: TEMP 98.7
[2018-05-08 15:17] VITALS: BP 142/63; PULSE 60
[2018-05-08] MEDS ORDERED: LASIX 40MG TABL40 MG PO (15:46)
[2018-05-08] MEDS ORDERED: MILK OF MA400 MG/52 PO (15:55)
[2018-05-08] MEDS ORDERED: NEURONTIN100 MG/CAP PO (15:56)
[2018-05-08] MEDS ORDERED: MOVANTIK25 MG PO (15:57)
[2018-05-08] MEDS ORDERED: VITAMIND3 5000 PO (15:58)
[2018-05-08] MEDS ORDERED: PRILOSEC 20MG20 MG PO (15:58)
[2018-05-08] MEDS ORDERED: LIDODERM 5% PATC1 EA TP (15:59)
[2018-05-08] MEDS ORDERED: GLUCOPHAGE500 MG/TAB PO (15:59)
[2018-05-08] MEDS ORDERED: TYLENOL 325MG325 MG PO (16:00)
[2018-05-08] MEDS ORDERED: COUMADIN 6MG6 MG/TAB PO (16:03)
[2018-05-08] MEDS ORDERED: COUMADIN 22.5 MG/TAB PO (16:04)
[2018-05-08] MEDS ORDERED: REMERON 15M15 MG/TA1 PO (16:05)
[2018-05-08] MEDS ORDERED: CELEBREX 200MG200 MG PO (16:06)
[2018-05-08] MEDS ORDERED: LOVENOX 8080 MG/0.8 SQ (16:06)
[2018-05-08] MEDS ORDERED: CEPHALEXIN500 M1 PO (16:07)
[2018-05-11] MEDS ORDERED: CLEOCIN HCL300 MG PO (19:38)
== END 2018-05-08 15:35 | disposition home or self-care (01) ==
LOC: COL.ER 14:34
DX: L03.116 Cellulitis of left lower limb (principal); E11.9 Type 2 diabetes mellitus without complications; J44.9 Chronic obstructive pulmonary disease, unspecified; I48.91 Unspecified atrial fibrillation; Z79.01 Long term (current) use of anticoagulants; Z79.4 Long term (current) use of insulin

== ENCOUNTER 2018-06-29 20:33 | Inpatient (IN) | payer MEDICARE, BC ==
[~2018-06-29] VITALS: Ht 170.2 cm; Wt 78.8 kg
[~2018-06-29 20:33] MED LIST changes: +CELEBREX 200MG200 MG PO; +CEPHALEXIN500 M1 PO; +CLEOCIN HCL300 MG PO; +COUMADIN 6MG6 MG/TAB PO; +LASIX 40MG TABL40 MG PO; +LIDODERM 5% PATC1 EA TP; +LOVENOX 8080 MG/0.8 SQ; +MILK OF MA400 MG/52 PO; +MOVANTIK25 MG PO; +NEURONTIN100 MG/CAP PO; +PRILOSEC 20MG20 MG PO; +REMERON 15M15 MG/TA1 PO; +TYLENOL 325MG325 MG PO; +VITAMIND3 5000 PO
[2018-06-29 21:02] LABS: BASO # 0.1 (0.0-0.2); BASO % 0.6 % (0.0-2.0); EOS # 0.2 (0.0-0.7); EOS % 2.9 % (0-4.0); GRAN # 4.5 (1.4-6.5); GRAN % 54.4 % (42.2-75.2); HEMOGLOBIN 10.5 g/dl (13.5-18.0); LYMPH # 2.9 (1.2-3.4); LYMPH % 35.1 % (20.0-51.0); MEAN CELL VOLUME 96 fl (80.0-100.0); MEAN CORPUSCULAR HEMOGLOBIN 32 pg (27.0-31.0); MEAN CORPUSCULAR HGB CONC 34 g/dl (33.0-37.0); MEAN PLATELET VOLUME 10.9 fl (7.4-10.4); MONO # 0.6 (0.1-0.6); MONO % 6.8 % (1.7-9.3); PLATELET COUNT 216 K/mm3 (130-400); RED BLOOD COUNT 3.25 M/mm3 (4.20-5.60); REDCELL DISTRIBUTION WIDTH-CV 13.2 % (11.5-14.5)
[2018-06-29 21:03] LABS: HEMATOCRIT 31.2 % (42.0-52.0)
[2018-06-29 21:14] LABS: ALBUMIN 3.8 gm/dL (3.5-5.0); BILIRUBIN,TOTAL 0.6 mg/dL (0.0-1.0); CALCIUM 8.9 mg/dL (8.4-10.2); CREATININE, serum 1.67 mg/dL (0.66-1.25); POTASSIUM 4.3 mmol/L (3.4-5.0); TOTAL PROTEIN 6.5 gm/dL (6.4-8.2)
[2018-06-29 21:15] LABS: C-REACTIVE PROTEIN 0.5 mg/dL (0.0-0.9)
[2018-06-29 21:23] LABS: TROPONIN-I 0.015 ng/mL (0.000-0.034)
[2018-06-29 22:10] LABS: COLLECTION METHOD CLEAN CATCH
[2018-06-29 22:20] LABS: MUCOUS Present /lpf; PH 6 (5-8); SQUAMOUS EPITHELIAL None Seen /hpf; URINE APPEARANCE Clear; URINE BACTERIA None Seen /hpf; URINE BILIRUBIN Negative (NEGATIVE); URINE BLOOD Negative (NEGATIVE); URINE COLOR Yellow; URINE GLUCOSE 1+ (NEGATIVE); URINE KETONE Negative (NEGATIVE); URINE LEUKOCYTE ESTERASE Negative (NEGATIVE); URINE NITRATE Negative (NEGATIVE); URINE PROTEIN(semi-quant) 1+ (NEGATIVE); URINE RBC None Seen /hpf; URINE UROBILINOGEN Negative (NEGATIVE)
[2018-06-30] VITALS (8 sets, daily range): BP systolic 129–175; BP diastolic 40–71; PULSE 67–85; TEMP 97.5–98.2
[2018-06-30 00:11] LABS: INR 1.3 (0.8-3.0); PROTHROMBIN TIME 14.4 SECONDS (9.7-12.8)
[2018-06-30] MEDS ORDERED: GLUMETZA500 MG PO (01:58)
[2018-06-30 06:37] LABS: CALCIUM 8.8 mg/dL (8.4-10.2); CREATININE, serum 1.42 mg/dL (0.66-1.25); POTASSIUM 3.7 mmol/L (3.4-5.0)
[2018-06-30 06:46] LABS: BASO # 0.1 (0.0-0.2); BASO % 0.7 % (0.0-2.0); EOS # 0.3 (0.0-0.7); EOS % 3.2 % (0-4.0); GRAN # 4.7 (1.4-6.5); GRAN % 54.8 % (42.2-75.2); HEMOGLOBIN 10.4 g/dl (13.5-18.0); LYMPH # 2.9 (1.2-3.4); LYMPH % 33.7 % (20.0-51.0); MEAN CELL VOLUME 95 fl (80.0-100.0); MEAN CORPUSCULAR HEMOGLOBIN 32 pg (27.0-31.0); MEAN CORPUSCULAR HGB CONC 33 g/dl (33.0-37.0); MEAN PLATELET VOLUME 11.4 fl (7.4-10.4); MONO # 0.6 (0.1-0.6); MONO % 7.5 % (1.7-9.3); PLATELET COUNT 207 K/mm3 (130-400); RED BLOOD COUNT 3.27 M/mm3 (4.20-5.60); REDCELL DISTRIBUTION WIDTH-CV 13.2 % (11.5-14.5)
[2018-06-30 06:47] LABS: HEMATOCRIT 31.2 % (42.0-52.0)
[2018-06-30 10:34] LABS: INR 1.2 (0.8-3.0); PROTHROMBIN TIME 13.9 SECONDS (9.7-12.8)
[2018-06-30 10:36] LABS: PARTIAL THROMBOPLASTIN TIME 31.6 SECONDS (26.0-37.0)
[2018-07-01 01:03] VITALS: PULSE 92
[2018-07-01 07:55] LABS: ALBUMIN 3.1 gm/dL (3.5-5.0); BILIRUBIN,TOTAL 0.5 mg/dL (0.0-1.0); CALCIUM 8.4 mg/dL (8.4-10.2); CREATININE, serum 1.31 mg/dL (0.66-1.25); POTASSIUM 3.5 mmol/L (3.4-5.0); TOTAL PROTEIN 5.6 gm/dL (6.4-8.2)
[2018-07-01 08:04] VITALS: BP 159/52; PULSE 73; TEMP 97.9
[2018-07-01 11:02] VITALS: BP 162/47; PULSE 78; TEMP 98.1
[2018-07-01 17:12] VITALS: BP 168/71; PULSE 72; TEMP 97.9
[2018-07-01 21:10] VITALS: BP 160/65; PULSE 84
[2018-07-02 03:18] VITALS: BP 147/57; PULSE 78
[2018-07-02 07:23] LABS: BASO # 0.1 (0.0-0.2); BASO % 0.8 % (0.0-2.0); EOS # 0.3 (0.0-0.7); EOS % 5.4 % (0-4.0); GRAN # 3.3 (1.4-6.5); GRAN % 52.6 % (42.2-75.2); LYMPH # 2.1 (1.2-3.4); LYMPH % 33.6 % (20.0-51.0); MEAN CELL VOLUME 94 fl (80.0-100.0); MEAN CORPUSCULAR HGB CONC 34 g/dl (33.0-37.0); MEAN PLATELET VOLUME 10.8 fl (7.4-10.4); MONO # 0.5 (0.1-0.6); MONO % 7.4 % (1.7-9.3); PLATELET COUNT 172 K/mm3 (130-400); RED BLOOD COUNT 2.72 M/mm3 (4.20-5.60); REDCELL DISTRIBUTION WIDTH-CV 13.3 % (11.5-14.5)
[2018-07-02 07:27] LABS: HEMATOCRIT 25.6 % (42.0-52.0); HEMOGLOBIN 8.8 g/dl (13.5-18.0); MEAN CORPUSCULAR HEMOGLOBIN 32 pg (27.0-31.0)
[2018-07-02 07:28] LABS: INR 1.2 (0.8-3.0); PROTHROMBIN TIME 13.9 SECONDS (9.7-12.8)
[2018-07-02 07:31] LABS: CALCIUM 8.5 mg/dL (8.4-10.2); CREATININE, serum 1.35 mg/dL (0.66-1.25); POTASSIUM 3.5 mmol/L (3.4-5.0)
[2018-07-02] MEDS ORDERED: PREDNISONE20 MG PO ×2 (09:10→09:14)
[2018-07-02] MEDS ORDERED: LEVAQUIN 750MG750 M1 PO ×2 (09:10→09:14)
[2018-07-02 09:29] VITALS: BP 177/70; PULSE 95; TEMP 98.7
== END 2018-07-02 13:14 | DRG 444 ==
LOC: COL.ER 20:33 → MEDICAL 23:23
PROVIDERS: Emergency Medicine; Internal Medicine; Nurse Practitioner Family; Physician Assistant
DX: K80.10 Calculus of gallbladder with chronic cholecystitis without obstruction (principal); J18.9 Pneumonia, unspecified organism; J44.0 Chronic obstructive pulmonary disease with (acute) lower respiratory infection; N17.9 Acute kidney failure, unspecified; E87.2 Acidosis; I48.0 Paroxysmal atrial fibrillation; I12.9 Hypertensive chronic kidney disease with stage 1 through stage 4 chronic kidney disease, or unspecified chronic kidney disease; E11.22 Type 2 diabetes mellitus with diabetic chronic kidney disease; N18.9 Chronic kidney disease, unspecified; E11.42 Type 2 diabetes mellitus with diabetic polyneuropathy; Z79.4 Long term (current) use of insulin; I25.10 Atherosclerotic heart disease of native coronary artery without angina pectoris; Z79.01 Long term (current) use of anticoagulants; Z86.718 Personal history of other venous thrombosis and embolism
CPT/HCPCS: 99222-AI; 99231-AI; 99239; G0378; J1644; J1815; J1956; J2405; J7030; J7512

== ENCOUNTER 2019-02-06 22:16 | Emergency (ER) | payer MEDICARE, BC ==
[~2019-02-06] VITALS: Ht 170.2 cm; Wt 78.6 kg
[~2019-02-06 22:16] MED LIST changes: +GLUMETZA500 MG PO; +LEVAQUIN 750MG750 M1 PO
[2019-02-06 22:26] VITALS: BP 194/88; TEMP 97.6
[2019-02-06 23:32] VITALS: PULSE 68
== END 2019-02-06 23:30 | disposition home or self-care (01) ==
LOC: COL.ER 22:16
DX: S81.812A Laceration without foreign body, left lower leg, initial encounter (principal); I48.91 Unspecified atrial fibrillation; Z79.01 Long term (current) use of anticoagulants; Z79.4 Long term (current) use of insulin; W22.8XXA Striking against or struck by other objects, initial encounter; Y92.009 Unspecified place in unspecified non-institutional (private) residence as the place of occurrence of the external cause